=== PATIENT | male | born 1970 ===

== ENCOUNTER 2018-06-11 21:15 | Observation (INO) | payer OTHER ==
[~2018-06-11] VITALS: Ht 180.3 cm; Wt 116.1 kg
[2018-06-11 21:31] LABS: BASOPHILS # (AUTO) 0.1 10^3/uL (0.0-0.1); BASOPHILS % (AUTO) 0 % (0-10); EOSINOPHILS # (AUTO) 0.6 10^3/uL (0.0-0.3); EOSINOPHILS % (AUTO) 3 % (0-10); HEMATOCRIT 36 % (40-54); HEMOGLOBIN 10.8 G/DL (13.3-17.7); LYMPHOCYTES # (AUTO) 3.2 X 10^3 (1.0-4.0); LYMPHOCYTES % (AUTO) 18 % (12-44); MEAN CORPUSCULAR HEMOGLOBIN 21 PG (25-34); MEAN CORPUSCULAR HGB CONC 30 G/DL (32-36); MEAN CORPUSCULAR VOLUME 70 FL (80-99); MEAN PLATELET VOLUME 11.5 FL (7.4-10.4); MONOCYTES # (AUTO) 1.5 X 10^3 (0.0-1.0); MONOCYTES % (AUTO) 8 % (0-12); NEUTROPHILS # (AUTO) 12.8 X 10^3 (1.8-7.8); NEUTROPHILS % (AUTO) 71 % (42-75); PLATELET COUNT 385 10^3/uL (130-400); RED CELL DISTRIBUTION WIDTH 18.8 % (10.0-14.5); WHITE BLOOD COUNT 18.1 10^3/uL (4.3-11.0)
--- NOTE | 2018-06-11 21:33 | ED Syncope ---
General Chief Complaint: Dizziness/Syncope Stated Complaint: PASSED OUT Source of Information: Patient Exam Limitations: No Limitations History of Present Illness Date Seen by Provider: Jun 11, 2018 Time Seen by Provider: 21:15 Initial Comments The patient presents to ER by EMS from the [facility] where he was attending a concert and had a near syncopal episode followed by a syncopal episode. EMS reports he was complaining of diaphoresis cold clammy before the episode. There was no shaking or seizure-like activity. Patient denies a history of seizures, stroke, coronary artery disease. Patient denies chest pain. Patient does have a history of diabetes on metformin and initial sugar by EMS was over 300. Patient' s blood pressure was 80/40 per EMS initially we initiated a 20-gauge left antecubital space and got about half of a 1 L of saline and by time the arrived in the ER. Patient does not check his blood sugars and has never had low blood sugar before. He denies having a cough, shortness of breath, abdominal pain, nausea or dysuria. He did have some nausea when he was having sweats just prior to passing out. Patient says about 2 weeks ago started new blood pressure medicine but he does not know what the name of it is. He takes a cholesterol medicine, Synthroid and metformin. He does not metformin for over a year. He denies tobacco and recreational drugs but he says he did have at least one shot tonight. Allergies and Home Medications Allergies Coded Allergies: No Known Drug Allergies (Unverified , 06/11/18) Home Medications Olmesartan Medoxomil 20 Mg Tablet, 20 MG PO DAILY, (Reported) Patient Home Medication List Home Medication List Reviewed: Yes Review of Systems Constitutional: chills, diaphoresis; No fever; malaise, weight loss ( intentional 30 pounds over the past year by portion control and exercise) EENTM: No ear discharge, No ear pain Respiratory: No cough, No phlegm, No short of breath Cardiovascular: No chest pain, No edema Gastrointestinal: No abdominal pain, No constipation, No diarrhea; nausea; No vomiting Genitourinary: No discharge, No dysuria Musculoskeletal: No back pain, No joint pain Skin: No pruritus, No rash Past Pkmpulo-Aacwnu-Tfeyqb Hx Patient Social History Alcohol Use: Denies Use Recreational Drug Use: No Smoking Status: Never a Smoker 2nd Hand Smoke Exposure: No Recent Hopitalizations: No Seasonal Allergies Seasonal Allergies: Yes Past Medical History Surgeries: Yes (NASAL POLYPS REMOVED) Respiratory: No Cardiac: Yes Hypertension Neurological: No Genitourinary: No Gastrointestinal: No Musculoskeletal: No Endocrine: Yes Hypothyroidsim, Diabetes, Non-Insulin dep Are Your Blood Sugars Over 250: No HEENT: No Cancer: No Psychosocial: No Blood Disorders: No Physical Exam Vital Signs Vital Signs - First Documented 06/11/18 21:15 Temp 96.1 Pulse 89 Resp 18 B/P (MAP) 112/69 (83) Pulse Ox 100 O2 Delivery Room Air Capillary Refill : Height, Weight, BMI Height: '" Weight: lbs. oz. kg; BMI Method: General Appearance: WD/WN, Other (anxious) HEENT: PERRL/EOMI, TMs Normal, Normal ENT Inspection, Pharynx Normal, Moist Mucous Membranes, Other (and atraumatic head without Mosquera sign or raccoon eyes. Negative for hemotympanum) Neck: Full Range of Motion, Normal Inspection, Non Tender, Supple Cardiovascular: Regular Rate, Rhythm, No Edema, No Murmur, Normal Peripheral Pulses Respiratory: Chest Non Tender, Lungs Clear, Normal Breath Sounds, No Accessory Muscle Use, No Respiratory Distress Gastrointestinal: Normal Bowel Sounds, No Organomegaly, Non Tender, Soft Neurologic/Psychiatric: Alert, Oriented x3, No Motor/Sensory Deficits, retail management keyholder II- XII Norm as Tested Cranial Nerves: Normal Hearing, Normal Speech, PERRL Motor/Sensory: No Motor Deficit, No Sensory Deficit, No Pronator Drift Skin: Normal Color, Damp (faintly) Focused Exam Lactate Level 06/11/18 22:25: Lactic Acid Level 2.58*H 06/12/18 00:20: Lactic Acid Level 2.32*H Lactic Acid Level Laboratory Tests Test 06/11/18 22:25 06/12/18 00:20 Lactic Acid Level 2.58 MMOL/L (0.50-2.00) *H 2.32 MMOL/L (0.50-2.00) *H Progress/Results/Core Measures Results/Orders Lab Results Laboratory Tests Test 06/11/18 21:15 06/11/18 21:23 06/11/18 22:25 06/11/18 22:45 Range/Units White Blood Count 18.1 H 4.3-11.0 10^3/uL Red Blood Count 5.18 4.35-5.85 10^6/uL Hemoglobin 10.8 L 13.3-17.7 G/DL Hematocrit 36 L 40-54 % Mean Corpuscular Volume 70 L 80-99 FL Mean Corpuscular Hemoglobin 21 L 25-34 PG Mean Corpuscular Hemoglobin Concent 30 L 32-36 G/DL Red Cell Distribution Width 18.8 H 10.0-14.5 % Platelet Count 385 130-400 10^3/uL Mean Platelet Volume 11.5 H 7.4-10.4 FL Neutrophils (%) (Auto) 71 42-75 % Lymphocytes (%) (Auto) 18 12-44 % Monocytes (%) (Auto) 8 0-12 % Eosinophils (%) (Auto) 3 0-10 % Basophils (%) (Auto) 0 0-10 % Neutrophils # (Auto) 12.8 H 1.8-7.8 X 10^3 Lymphocytes # (Auto) 3.2 1.0-4.0 X 10^3 Monocytes # (Auto) 1.5 H 0.0-1.0 X 10^3 Eosinophils # (Auto) 0.6 H 0.0-0.3 10^3/uL Basophils # (Auto) 0.1 0.0-0.1 10^3/uL Neutrophils % (Manual) 74 % Lymphocytes % (Manual) 19 % Monocytes % (Manual) 5 % Eosinophils % (Manual) 2 % Hypochromasia SLIGHT Anisocytosis SLIGHT Microcytosis SLIGHT Elliptocytes SLIGHT Prothrombin Time 12.7 12.2-14.7 SEC INR Comment 0.9 0.8-1.4 Activated Partial Thromboplast Time 22 L 24-35 SEC Sodium Level 135 135-145 MMOL/L Potassium Level 5.4 H 3.6-5.0 MMOL/L Chloride Level 98 98-107 MMOL/L Carbon Dioxide Level 19 L 21-32 MMOL/L Anion Gap 18 H 5-14 MMOL/L Blood Urea Nitrogen 17 7-18 MG/DL Creatinine 2.34 H 0.60-1.30 MG/DL Estimat Glomerular Filtration Rate 30 BUN/Creatinine Ratio 7 Glucose Level 319 H 70-105 MG/DL Calcium Level 9.5 8.5-10.1 MG/DL Corrected Calcium 9.4 8.5-10.1 MG/DL Total Bilirubin 0.6 0.1-1.0 MG/DL Aspartate Amino Transf (AST/SGOT) 49 H 5-34 U/L Alanine Aminotransferase (ALT/SGPT) 26 0-55 U/L Alkaline Phosphatase 68 40-136 U/L Troponin I < 0.028 <0.028 NG/ML Total Protein 7.9 6.4-8.2 GM/DL Albumin 4.1 3.2-4.5 GM/DL Thyroid Stimulating Hormone (TSH) 3.97 0.35-4.94 UIU/ML Serum Alcohol < 10 <10 MG/DL Glucometer 305 H 70-110 MG/DL Lactic Acid Level 2.58 *H 0.50-2.00 MMOL/L Urine Color YELLOW Urine Clarity CLEAR Urine pH 5 5-9 Urine Specific Laurier 1.015 L 1.016-1.022 Urine Protein 2+ H NEGATIVE Urine Glucose (UA) 4+ H NEGATIVE Urine Ketones NEGATIVE NEGATIVE Urine Nitrite NEGATIVE NEGATIVE Urine Bilirubin NEGATIVE NEGATIVE Urine Urobilinogen NORMAL NORMAL MG/DL Urine Leukocyte Esterase NEGATIVE NEGATIVE Urine RBC (Auto) NEGATIVE NEGATIVE Urine RBC NONE /HPF Urine WBC NONE /HPF Urine Squamous Epithelial Cells NONE /HPF Urine Crystals NONE /LPF Urine Bacteria TRACE /HPF Urine Casts PRESENT /LPF Urine Hyaline Casts 2-5 H /LPF Urine Mucus MODERATE H /LPF Urine Culture Indicated CULTURE PENDING Urine Opiates Screen NEGATIVE NEGATIVE Urine Oxycodone Screen NEGATIVE NEGATIVE Urine Methadone Screen NEGATIVE NEGATIVE Urine Propoxyphene Screen NEGATIVE NEGATIVE Urine Barbiturates Screen NEGATIVE NEGATIVE Ur Tricyclic Antidepressants Screen NEGATIVE NEGATIVE Urine Phencyclidine Screen NEGATIVE NEGATIVE Urine Amphetamines Screen NEGATIVE NEGATIVE Urine Methamphetamines Screen NEGATIVE NEGATIVE Urine Benzodiazepines Screen NEGATIVE NEGATIVE Urine Cocaine Screen NEGATIVE NEGATIVE Urine Cannabinoids Screen NEGATIVE NEGATIVE Test 06/12/18 00:20 Range/Units Lactic Acid Level 2.32 *H 0.50-2.00 MMOL/L My Orders Orders - SEAN CARLSON Chest 1 View, Ap/Pa Only (06/11/18 21:23) Alcohol (06/11/18 21:24) Cbc With Automated Diff (06/11/18 21:24) Comprehensive Metabolic Panel (06/11/18 21:24) Drug Screen Stat (Urine) (06/11/18 21:24) Thyroid Stimulating Hormone (06/11/18 21:24) Troponin I (06/11/18 21:24) Ua Culture If Indicated (06/11/18 21:24) Accucheck Stat ONCE (06/11/18 21:24) Ekg Tracing (06/11/18 21:24) Continuous Ekg Monitoring (06/11/18 21:24) Accucheck Stat ONCE (06/11/18 21:24) Orthostatic Vital Signs (Adult (06/11/18 21:24) Manual Differential (06/11/18 21:15) Ct Head Wo (06/11/18 21:34) Ns Iv 1000 Ml (Sodium Chloride 0.9%) (06/11/18 22:00) Ed Iv/Invasive Line Start (06/11/18 21:52) Ns Iv 1000 Ml (Sodium Chloride 0.9%) (06/11/18 21:52) Protime With Inr (06/11/18 22:08) Partial Thromboplastin Time (06/11/18 22:08) Blood Culture (06/11/18 22:08) Lactic Acid Analyzer (06/11/18 22:08) Ed Iv/Invasive Line Start (06/11/18 22:08) Ns Iv 1000 Ml (Sodium Chloride 0.9%) (06/11/18 22:08) Cefepime Injection (Maxipime Injection) (06/11/18 22:15) Sputum Culture (06/11/18 22:11) Urine Culture (06/11/18 22:11) Ed Iv/Invasive Line Start (06/11/18 22:11) Insulin (Regular) Human (Humulin R (Per (06/11/18 23:00) Ct Abdomen/Pelvis Wo (06/11/18 23:20) Medications Given in ED Current Medications Medications Dose Ordered Sig/Chaz Route Start Time Stop Time Status Last Admin Dose Admin Cefepime HCl 2000 mg/Sterile Water 20 ml @ 240 mls/hr ONCE ONCE IV 06/11/18 22:15 06/11/18 22:19 DC 06/11/18 22:48 240 MLS/HR Insulin Human Regular 10 unit ONCE ONCE SC 06/11/18 23:00 06/11/18 23:01 DC 06/11/18 23:04 10 UNIT Sodium Chloride 1,000 ml @ 100 mls/hr Q10H ONCE IV 06/11/18 22:00 06/11/18 22:00 DC 06/11/18 21:53 100 MLS/HR Vital Signs/I&O 06/11/18 06/11/18 21:15 22:30 Temp 96.1 Pulse 89 87 96 Resp 18 B/P (MAP) 112/69 (83) 116/75 (89) 116/83 (94) Pulse Ox 100 O2 Delivery Room Air 06/12/18 00:00 Intake Total 420 ml Balance 420 ml Progress Progress Note #1: Time: 21:31 Progress Note Chest x-ray, EKG, blood and urine. His we'll get an orthostatic vital sign and give him a second liter of fluids as his first is completely still about 102/ 65. We'll look for signs of infection, dysrhythmia and a repeat Accu-Chek showed it was still above 300. It's possible he had a hypoglycemia episode due to some other cause and has had a rebound release of blood sugar. We'll look for ketones in his urine. DKA is possible. Progress Note #2: Time: 22:13 Progress Note 1500 cc of IV fluids are in and the patient's orthostatics are negative. He has no elevated white count of 18,000 and an acute kidney injury. Plan to give him 30 mL/kg which would be based on an ideal body weight of 90 kg just under 3 L. We'll give him 10 units of regular insulin. We'll do a septic workup based on his hypertension and leukocytosis and start with cefepime which would be tolerated with his VICKIE. Patient is not acidotic nor does he have increased serum osmolality. Initial ECG Impression Date: Jun 11, 2018 Initial ECG Impression Time: 21:27 Initial ECG Rate: 86 Initial ECG Rhythm: Normal Sinus Initial ECG Intervals: Normal Initial ECG Impression: Normal Initial ECG Comparisson: No Previous ECG Available Comment Normal sinus rhythm without ST elevation or depression. Diagnostic Imaging Diagonstic Imaging: Xray Plain Films/CT/US/NM/MRI: chest (1v) Comments No Acute cardiopulmonary processes noted on chest x-ray. [email or web address] [place], [place] NAME: JESSIKA MCKEONNIKOLAI Chahal [facility] REC#: [id number] PT STATUS: REG ER : 1970 PHYSICIAN: SEAN CARLSON MD ADMIT DATE: 06/11/18/ER Draft Date of Exam:06/11/18 CHEST 1 VIEW, AP/PA ONLY EXAMINATION: Single frontal view of the chest. INDICATION: Dizziness and syncope. COMPARISON: None available. FINDINGS: The lungs are clear and the pulmonary vasculature is normal. No pneumothorax or large pleural effusion. The cardiomediastinal silhouette is normal. There is a small hiatal hernia. No acute osseous abnormality is demonstrated. IMPRESSION: No acute chest disease. Dictated on workstation # [id number] Dict: 06/11/182226 Trans: 06/11/182229 [facility] [id number] Interpreted by: ZURI ROSE DO Electronically signed by: Reviewed: Reviewed by Me Diagonstic Imaging: CT (noncontrast) Plain Films/CT/US/NM/MRI: head Comments Intracranial hemorrhage, mass effect, tumor or calvarial fracture. NAME: JEREL MCKEON [facility] REC#: [id number] PT STATUS: REG ER : 1970 PHYSICIAN: SEAN CARLSON MD ADMIT DATE: 06/11/18/ER Draft Date of Exam:06/11/18 CT HEAD WO PROCEDURE: CT head without contrast. TECHNIQUE: Multiple contiguous axial images were obtained through the brain without the use of intravenous contrast. Auto Exposure Controls were utilized during the CT exam to meet ALARA standards for radiation dose reduction. INDICATION: Dizziness and syncope. COMPARISON: None. FINDINGS: BRAIN: No parenchymal hemorrhage, midline shift or mass effect. Almeida-white matter differentiation is intact. No acute infarct. No white matter lesions. Ventricles, sulci and basilar cisterns are normal. EXTRA-AXIAL SPACES: No subdural or epidural collections. ORBITS AND PARANASAL SINUSES: Visualized orbits and globes are intact. Air-fluid level is noted in the right maxillary sinus. Mild mucosal thickening is noted in the ethmoid air cells. Visualized paranasal sinuses and mastoid air cells are otherwise clear. CALVARIUM AND SOFT TISSUES: The calvarium is intact. No fractures or suspicious bony lesions. The extracranial soft tissues are unremarkable. IMPRESSION: No acute intracranial pathology. Air-fluid level in the right maxillary sinus may reflect sinusitis. Findings are in agreement with initial teleradiology report. Dictated on workstation # [id number] Dict: 06/11/18 2240 Trans: 06/11/18 2245 [facility] [id number] Interpreted by: ZURI ROSE DO Electronically signed by: Reviewed: Reviewed by Me Diagonstic Imaging: CT (noncontrast) Plain Films/CT/US/NM/MRI: abdomen, pelvis Comments No acute intra-abdominal processes seen. Gallstones noted. Reviewed: Reviewed by Me Departure Communication (Admissions) Time/Spoke to Admitting Phy: 02:45 Physical examination findings of Dr. Sue agrees to admit the patient. We discussed the labs, imaging and findings. We discussed antibiotic treatment for unknown source. Impression Primary Impression: Syncope and collapse Additional Impressions: VICKIE (acute kidney injury) Diabetes type 2, uncontrolled Qualified Codes: E11.65 - Type 2 diabetes mellitus with hyperglycemia Lactic acidosis Leukocytosis, unspecified Disposition: ADMITTED INPATIENT Condition: Stable Admissions Decision to Admit Reason: Admit from ER (General) Decision to Admit/Date: Jun 12, 2018 Time/Decision to Admit Time: 01:26 Departure-Patient Inst. Referrals: NO,LOCAL PHYSICIAN (PCP/Family) Primary Care Physician SEAN CARLSON Jun 11, 2018 21:33
[2018-06-11 21:46] LABS: ALANINE AMINOTRANSFERASE 26 U/L (0-55); ALBUMIN 4.1 GM/DL (3.2-4.5); ALKALINE PHOSPHATASE 68 U/L (40-136); BILIRUBIN,TOTAL 0.6 MG/DL (0.1-1.0); BUN/CREATININE RATIO 7; CALCIUM 9.5 MG/DL (8.5-10.1); CARBON DIOXIDE 19 MMOL/L (21-32); CHLORIDE 98 MMOL/L (98-107); CREATININE SERUM 2.34 MG/DL (0.60-1.30); GFR ESTIMATED 30; GLUCOSE 319 MG/DL (70-105); POTASSIUM 5.4 MMOL/L (3.6-5.0); SODIUM 135 MMOL/L (135-145); TOTAL PROTEIN 7.9 GM/DL (6.4-8.2)
[2018-06-11] MEDS ORDERED: NS IV 1000 ML 1,000 ML IV SCH ×2 (21:52→22:08)
[2018-06-11] MEDS ORDERED: NS IV 1000 ML 1,000 ML IV ONE (22:00)
[2018-06-11 22:01] LABS: ANISOCYTOSIS SLIGHT; ELLIPT/OVALOCYTES SLIGHT; EOSINOPHILS % (MANUAL) 2 %; HYPOCHROMASIA SLIGHT; LYMPHOCYTES % (MANUAL) 19 %; MICROCYTOSIS SLIGHT; MONOCYTES % (MANUAL) 5 %; NEUTROPHILS % (MANUAL) 74 %
[2018-06-11] MEDS ORDERED: CEFEPIME INJECTION 2,000 MG in WATER (STERILE) FOR INJECTION 20 ML IV ONE (22:15)
[2018-06-11 22:22] LABS: INR 0.9 (0.8-1.4); PROTHROMBIN TIME PATIENT 12.7 SEC (12.2-14.7)
[2018-06-11 22:30] VITALS: BP_SYST 116; BP_DIAS 75; BP_DIAS 83
--- NOTE | 2018-06-11 22:30 | Diagnostic Imaging Report ---
EXAMINATION: Single frontal view of the chest. INDICATION: Dizziness and syncope. COMPARISON: None available. FINDINGS: The lungs are clear and the pulmonary vasculature is normal. No pneumothorax or large pleural effusion. The cardiomediastinal silhouette is normal. There is a small hiatal hernia. No acute osseous abnormality is demonstrated. IMPRESSION: No acute chest disease. Dictated by: Dictated on workstation # [id number]
--- NOTE | 2018-06-11 22:46 | Diagnostic Imaging Report ---
PROCEDURE: CT head without contrast. TECHNIQUE: Multiple contiguous axial images were obtained through the brain without the use of intravenous contrast. Auto Exposure Controls were utilized during the CT exam to meet ALARA standards for radiation dose reduction. INDICATION: Dizziness and syncope. COMPARISON: None. FINDINGS: BRAIN: No parenchymal hemorrhage, midline shift or mass effect. Almeida-white matter differentiation is intact. No acute infarct. No white matter lesions. Ventricles, sulci and basilar cisterns are normal. EXTRA-AXIAL SPACES: No subdural or epidural collections. ORBITS AND PARANASAL SINUSES: Visualized orbits and globes are intact. Air-fluid level is noted in the right maxillary sinus. Mild mucosal thickening is noted in the ethmoid air cells. Visualized paranasal sinuses and mastoid air cells are otherwise clear. CALVARIUM AND SOFT TISSUES: The calvarium is intact. No fractures or suspicious bony lesions. The extracranial soft tissues are unremarkable. IMPRESSION: No acute intracranial pathology. Air-fluid level in the right maxillary sinus may reflect sinusitis. Findings are in agreement with initial teleradiology report. Dictated by: Dictated on workstation # [id number]
[2018-06-11 22:54] LABS: BILIRUBIN,URINE NEGATIVE (NEGATIVE); CLARITY,URINE CLEAR; COLOR,URINE YELLOW; GLUCOSE, URINE (UA) 4+ (NEGATIVE); KETONES,URINE NEGATIVE (NEGATIVE); LEUKOCYTE ESTERASE ,URINE NEGATIVE (NEGATIVE); NITRITE,URINE NEGATIVE (NEGATIVE); PH,URINE 5 (5-9); PROTEIN,URINE 2+ (NEGATIVE); UROBILINOGEN,URINE NORMAL (NORMAL)
[2018-06-11] MEDS ORDERED: inSUlin (REGULAR) HUMAN 1 UNIT/0.01 ML (CHARGE PER UNIT) SC ONE (23:00)
[2018-06-11 23:06] LABS: AMPHETAMINE SCREEN, URINE NEGATIVE (NEGATIVE); BARBITURATE SCREEN URINE NEGATIVE (NEGATIVE); BENZODIAZEPINES SCREEN URINE NEGATIVE (NEGATIVE); CANNABINOID SCREEN, URINE NEGATIVE (NEGATIVE); COCAINE SCREEN URINE NEGATIVE (NEGATIVE); METHADONE STAT NEGATIVE (NEGATIVE); METHAMPHETAMINE SCREEN URINE S NEGATIVE (NEGATIVE); OPIATE SCREEN URINE NEGATIVE (NEGATIVE); OXYCODONE STAT NEGATIVE (NEGATIVE); PROPOXYPHENE STAT NEGATIVE (NEGATIVE); TRICYCLIC ANTIDEPRESSANTS SCRE NEGATIVE (NEGATIVE)
[2018-06-11 23:10] LABS: BACTERIA,URINE TRACE /HPF
[2018-06-12] MEDS ORDERED: OLME20TA24 PO (01:07)
--- NOTE | 2018-06-12 03:25 | NUR ---
JEREL MCKEON admitted to room 431-1, with an admitting diagnosis of syncope, increased WBC's, increased Lactate, DM, on 06/12/18 from ER via Wheelchair, accompanied by ER staff. JEREL MCKEON introduced to surroundings, call light, bed controls, phone, TV, temperature control, lights, meal times, smoking policy, visitor policy, side rail policy, bathrooms and showers. Patient Rights given to patient in the handbook. JEREL MCKEON verbalizes understanding that [facility] is not responsible for the loss or damage to any personal effects or valuables that are kept in the patients possession during their hospitalization.
[2018-06-12] MEDS ORDERED: NS IV 1000 ML 1,000 ML ONE (03:28)
[2018-06-12] MEDS: NS IV 1000 ML 1,000 ML IV SCH ×2 (03:30→09:21)
[2018-06-12 03:38] VITALS: BP 123/68
[2018-06-12 03:39] VITALS: BP 123/68
[2018-06-12] MEDS ORDERED: IBUPROFEN 800 MG (MOTRIN) TAB PO PRN (04:00)
[2018-06-12] MEDS ORDERED: ACETAMINOPHEN 500 MG TAB (TYLENOL) PO PRN (04:00)
[2018-06-12] MEDS ORDERED: ONDANSETRON 4 MG/2 ML (SDV) Z0FRAN IV PRN (04:00)
[2018-06-12] MEDS ORDERED: METF-397 PO (04:27)
[2018-06-12] MEDS ORDERED: FLUT9.9S NS (04:28)
[2018-06-12] MEDS ORDERED: LEVO200T6 PO (04:35)
[2018-06-12] MEDS ORDERED: ATOR20TA49 PO (04:35)
[2018-06-12] MEDS ORDERED: SILD50TA PO (04:35)
[2018-06-12] MEDS ORDERED: CETI10TA20 PO (04:35)
[2018-06-12] MEDS: CEFEPIME 1,000 MG/SWFI 10 ML IV PUSH IV SCH ×4 (05:03→13:56)
[2018-06-12] MEDS ORDERED: inSUlin ASPART (NovoLOG) 1 UNIT/0.01 ML (CHARGE PER UNIT) SC SCH ×2 (06:00→14:30)
[2018-06-12 06:37] LABS: BASOPHILS % (AUTO) 0 % (0-10); EOSINOPHILS # (AUTO) 0.5 10^3/uL (0.0-0.3); EOSINOPHILS % (AUTO) 4 % (0-10); HEMATOCRIT 33 % (40-54); HEMOGLOBIN 9.9 G/DL (13.3-17.7); LYMPHOCYTES % (AUTO) 16 % (12-44); MEAN CORPUSCULAR HEMOGLOBIN 21 PG (25-34); MEAN CORPUSCULAR HGB CONC 30 G/DL (32-36); MEAN CORPUSCULAR VOLUME 69 FL (80-99); MEAN PLATELET VOLUME 10.5 FL (7.4-10.4); MONOCYTES # (AUTO) 0.8 X 10^3 (0.0-1.0); MONOCYTES % (AUTO) 6 % (0-12); NEUTROPHILS # (AUTO) 9.1 X 10^3 (1.8-7.8); NEUTROPHILS % (AUTO) 74 % (42-75); PLATELET COUNT 316 10^3/uL (130-400); RED CELL DISTRIBUTION WIDTH 18.5 % (10.0-14.5); WHITE BLOOD COUNT 12.3 10^3/uL (4.3-11.0)
[2018-06-12 06:47] LABS: BUN/CREATININE RATIO 12; CALCIUM 8.6 MG/DL (8.5-10.1); CARBON DIOXIDE 19 MMOL/L (21-32); CHLORIDE 108 MMOL/L (98-107); CREATININE SERUM 1.02 MG/DL (0.60-1.30); GFR ESTIMATED > 60; GLUCOSE 200 MG/DL (70-105); POTASSIUM 3.9 MMOL/L (3.6-5.0); SODIUM 138 MMOL/L (135-145)
--- NOTE | 2018-06-12 07:30 | Diagnostic Imaging Report ---
PROCEDURE: CT abdomen and pelvis without contrast. TECHNIQUE: Multiple contiguous axial images were obtained through the abdomen and pelvis without the use of intravenous contrast. Auto Exposure Controls were utilized during the CT exam to meet ALARA standards for radiation dose reduction. Indication: Abdominal pain with dizziness and syncope. Comparison: None. Discussion: The lung bases are well-aerated. Normal heart size. No pleural or pericardial fluid. Small hiatal hernia with prominent mesenteric fat component. Cholelithiasis with no secondary inflammatory changes. The liver, pancreas, stomach, spleen, and adrenal glands are otherwise unremarkable. No renal stone or hydronephrosis. No evidence for appendicitis. Prostate is mildly enlarged. Urinary bladder is unremarkable. Minimal diverticulosis with no secondary evidence for diverticulitis. No obstruction, pneumatosis, pneumoperitoneum. Shotty appearing adenopathy noted centrally within the mesentery, likely mesenteric adenitis. No ascites. No osseous abnormality. Impression: 1. Chronic changes including cholelithiasis, diverticulosis, and shotty mesenteric adenopathy. No acute abnormality identified. 2. Agree with preliminary report. Dictated by: Dictated on workstation # [id number]
[2018-06-12 07:49] VITALS: BP 124/77
[2018-06-12] MEDS ORDERED: LEVOTHYROXINE 100 MCG (LEVOTHROID) TAB PO SCH (10:05)
[2018-06-12] MEDS ORDERED: LOSARTAN 100 MG (COZAAR) TABLET PO SCH (10:07)
[2018-06-12] MEDS ORDERED: inSUlin ASPART (NovoLOG) 1 UNIT/0.01 ML (CHARGE PER UNIT) ONE (10:40)
[2018-06-12 12:00] VITALS: BP 132/83
--- NOTE | 2018-06-12 14:05 | History & Physical-Hospitalist ---
History of Present Illness HPI/Chief Complaint The patient is a 48-year-old white male who was admitted after he presented at the emergency room with a complaint of a syncopal episode. He had been to the [place] for a [employer] concert. He reported that he had been feeling a little fainty even prior to leaving [place] to attend. He reported that he had rested a bit before leaving [place] and that had dinner and felt better so they proceeded. He had one alcoholic beverage. He then felt woozy in his chair and leaned forward. His field assessor reported that it took her a few moments to realize that he was not responding. She described that a cold sweat. He denies any chest pain. There is no past history of myocardial infarct or arrhythmias. He is diabetic. He has a family practice physician whom he sees in [place]. It would appear that this has not been particularly frequent. He does not know what his hemoglobin A1c is. He has not been tested in a couple of years or more. His management program has been that of metformin only. Recently and he was started on losartan. This would be appropriate both on the basis of diabetes and the fact that he states his diastolic has often been 100. He is feeling normal today and is anxious to be discharged. Date Seen 06/12/18 Attending Physician Estuardo Muniz MD PCP No,Local Physician Referring Physician Date of Admission Jun 12, 2018 at 01:50 Home Medications & Allergies Home Medications Reviewed patient Home Medication Reconciliation performed by pharmacy medication reconciliations freezer laboratory technician and/or nursing. Patients Allergies have been reviewed. Allergies Allergies Coded Allergies No Known Drug Allergies (Unverified06/11/18) Past Tckehwm-Rxnfzz-Svcglt Hx Past Med/Social Hx: Reviewed Nursing Past Med/Soc Hx Patient Social History Alcohol Use: Denies Use Recreational Drug Use: No Smoking Status: Never a Smoker 2nd Hand Smoke Exposure: No Recent Foreign Travel: No Contact w/other who traveled: No Recent Hopitalizations: No Recent Infectious Disease Expo: No Seasonal Allergies Seasonal Allergies: Yes Past Medical History Cardiac: Hypertension Endocrine: Hypothyroidsim, Diabetes, Non-Insulin dep Are Your Blood Sugars Over 250: No History of Blood Disorders: No Family History FH: breast cancer 19 MOTHER FH: thyroid cancer 19 MOTHER Hypertension 19 FATHER 19 MOTHER Thyroid disease 19 MOTHER G8 SISTER Review of Systems Constitutional: see HPI EENTM: no symptoms reported Respiratory: no symptoms reported Cardiovascular: syncope Gastrointestinal: no symptoms reported Genitourinary: frequency Musculoskeletal: no symptoms reported Skin: no symptoms reported Psychiatric/Neurological: No Symptoms Reported Physical Exam Physical Exam Vital Signs Vital Signs - First Documented 06/11/18 21:15 Temp 96.1 Pulse 89 Resp 18 B/P (MAP) 112/69 (83) Pulse Ox 100 O2 Delivery Room Air Capillary Refill : Less Than 3 Seconds Height, Weight, BMI Height: 5'11.00" Weight: 256lbs. 0.0oz. 116.768421tt; 35.7 BMI Method:Stated General Appearance: No Apparent Distress HEENT: Normal ENT Inspection Neck: Full Range of Motion, Normal Inspection, Non Tender Respiratory: Chest Non Tender, Lungs Clear, Normal Breath Sounds, No Accessory Muscle Use, No Respiratory Distress Cardiovascular: Regular Rate, Rhythm, No Edema, No Gallop, No JVD, No Murmur, Normal Peripheral Pulses Gastrointestinal: Normal Bowel Sounds, No Organomegaly, No Pulsatile Mass, Non Tender, Soft, Other (obese) Back: Normal Inspection Extremity: Normal Capillary Refill, Normal Inspection, Normal Range of Motion, Non Tender, No Calf Tenderness, No Pedal Edema Skin: Normal Color, Warm/Dry Results Results/Procedures Labs Laboratory Tests 06/11/18 21:15 06/12/18 06:19 Patient resulted labs reviewed. Assessment/Plan Admission Diagnosis Syncopal episode. 2.type II diabetes mellitus. 3.hypertension. 4.hypercholesterolemia. Admission Status: Observation Clinical Quality Measures DVT/VTE Risk/Contraindication: Risk Factor Score Per Nursin RFS Level Per Nursing on Admit: 2=Moderate ESTUARDO MUNIZ MD Jun 12, 2018 14:05
--- NOTE | 2018-06-12 14:24 | Discharge Inst-Simple/Standard ---
Discharge Inst-Standard Patient Instructions/Follow Up Plan of Care/Instructions/FU: You need to make an appointment with your family physician for within the next week. As we discussed your diabetic management needs to be much more rigorous. Among the necessities are control of hypertension with a target of diastolic 85 or less. Reduction of LDL cholesterol to less than 100. Use of a angiotensin receptor lilly or angiotensin converting enzyme inhibitor as part of your hypertension regimen. Diet and exercise. An immediate measurement of your hemoglobin A1c and a target reduction to less than 8 and preferably less than 7. Activity as Tolerated: Yes Discharge Diet: ADA Diet Return to The Hospital For: Recurrence of symptoms Planned Outpatient Orders/Ref. Pneu Vac Indicated: Yes BIANCA MUNIZ MD Jun 12, 2018 14:24
[2018-06-12 14:40] VITALS: BP 132/83
[2018-06-12] MEDS ORDERED: metFORMIN 500 MG (GLUCOPHAGE) TAB PO SCH (17:00)
[2018-06-12] MEDS ORDERED: ATORVASTATIN 20 MG (LIPITOR) TABLET PO SCH (21:00)
== END 2018-06-12 14:40 | disposition home or self-care (01) ==
LOC: ER 21:19 → 4TH 06-12 01:50
PROVIDERS: ADMIT Internal Medicine; ATTEND Internal Medicine
DX: R55 Syncope and collapse (principal); E11.65 Type 2 diabetes mellitus with hyperglycemia; E03.9 Hypothyroidism, unspecified; I10 Essential (primary) hypertension; E78.00 Pure hypercholesterolemia, unspecified; N17.9 Acute kidney failure, unspecified; E87.2 Acidosis; D72.829 Elevated white blood cell count, unspecified; Z79.899 Other long term (current) drug therapy; Z79.84 Long term (current) use of oral hypoglycemic drugs
CPT/HCPCS: 36415; 70450; 71045; 74176; 80048; 80053; 80306; 80320; 81000; 82962; 83605; 84443; 84484; 85007; 85025; 85027; 85610; 85730; 87040; 87088; 93005